=== PATIENT | male | born 1995 | race African-American/Black ===

== ENCOUNTER 2020-01-28 12:31 | Emergency (ER) | payer SELFPAY ==
[~2020-01-28] VITALS: Ht 188 cm; Wt 88.6 kg
[~2020-01-28 12:31] MED LIST: DURAFLU 325-201 EACH PO; TAMIFLU75 MG PO
[2020-01-28 12:37] VITALS: BP 136/58; Ht 188 cm; Wt 88.6 kg
[2020-01-28] MEDS ORDERED: HYDROCODON-ACE1 EAC7 PO (14:29)
== END 2020-01-28 14:41 | disposition home or self-care (01) ==
LOC: D.ER 12:31
DX: S62.501A Fracture of unspecified phalanx of right thumb, initial encounter for closed fracture (principal); W22.8XXA Striking against or struck by other objects, initial encounter; Y93.9 Activity, unspecified; Y92.9 Unspecified place or not applicable

== ENCOUNTER 2020-02-03 00:08 | Emergency (ER) | payer SELFPAY ==
[~2020-02-03] VITALS: Ht 188 cm; Wt 88.6 kg
[~2020-02-03 00:08] MED LIST changes: +HYDROCODON-ACE1 EAC7 PO
[2020-02-03 00:11] VITALS: Ht 188 cm; Wt 88.6 kg
[2020-02-03] MEDS ORDERED: AUGMENTIN 875-11 TAB PO (01:57)
[2020-02-03] MEDS ORDERED: HYDROCODON-ACE1 EAC2 PO (01:57)
[2020-02-03 03:35] VITALS: BP 126/71
== END 2020-02-03 03:28 | disposition home or self-care (01) ==
LOC: D.ER 00:08
DX: S02.652A Fracture of angle of left mandible, initial encounter for closed fracture (principal); Y09 Assault by unspecified means; Y93.9 Activity, unspecified; Y92.9 Unspecified place or not applicable

== ENCOUNTER 2021-03-25 12:16 | Emergency (ER) | payer OTHER ==
[~2021-03-25] VITALS: Ht 188 cm; Wt 88.6 kg
[~2021-03-25 12:16] MED LIST changes: +AUGMENTIN 875-11 TAB PO; +HYDROCODON-ACE1 EAC2 PO
[2021-03-25 12:21] VITALS: Ht 188 cm; Wt 88.6 kg
[2021-03-25 13:11] LABS: BASOPHILS 0.5 % (0-2); EOSINOPHILS 0.2 % (0-7); HEMATOCRIT 49.9 % (42.0-54.0); HEMOGLOBIN 17.2 g/dL (13.5-17.5); LYMPHOCYTES 10.6 % (15-50); MCH 28.1 pg (26.0-34.0); MCHC 34.6 g/dL (31.0-37.0); MCV 81.2 fL (80.0-100.0); MONOCYTES 4.9 % (2-11); NEUTROPHILS 83.8 % (40-80); PLATELET COUNT 348 10x3/uL (130-400); RBC 6.14 10x6/uL (4.20-6.10); RDW 14.8 % (11.5-14.5); WBC 14.5 10x3/uL (4.8-10.8)
[2021-03-25 13:26] LABS: CALC OSMOLALITY 283 mosm/kg (275-300); CALCIUM 9.2 mg/dL (8.5-10.1); CARBON DIOXIDE 33.7 mmol/L (21.0-32.0); CHLORIDE - SERUM 101 mmol/L (98-107); CREATININE - SERUM 1.1 mg/dL (0.6-1.3); GLUCOSE 99 mg/dL (74-106); POTASSIUM - SERUM 3.6 mmol/L (3.5-5.1); SODIUM 142 mmol/L (136-145); UREA NITROGEN 14 mg/dL (7-18); eGFR NON AFRICAN AMERICAN 86 mL/min (90-120)
[2021-03-25 13:32] LABS: ALBUMIN 4.5 g/dL (3.4-5.0); ALKALINE PHOSPHATASE 88 U/L (30-120); ALT (SGPT) 42 U/L (10-68); BILIRUBIN - TOTAL 0.85 mg/dL (0.2-1.3); PROTEIN - SERUM 7.8 g/dL (6.4-8.2)
[2021-03-25] MEDS ORDERED: FLAGYL500 MG PO (16:36)
[2021-03-25] MEDS ORDERED: CIPRO500 MG PO (16:36)
[2021-03-25 17:36] VITALS: BP 134/80
== END 2021-03-25 17:38 | disposition home or self-care (01) ==
LOC: D.ER 12:16
PROVIDERS: Emergency Medicine
DX: K52.9 Noninfective gastroenteritis and colitis, unspecified (principal); R11.2 Nausea with vomiting, unspecified